=== PATIENT | female | born 1985 | race African-American/Black ===

== ENCOUNTER 2017-03-14 23:59 | Emergency (ER) | payer OTHER ==
[2017-03-15] MEDS ORDERED: Sodium Chloride 0.9% 1,000 ML IV ONE ×2 (00:24→01:49)
[2017-03-15] MEDS ORDERED: Ondansetron 4 MG/2 ML SDV IVPUSH ONE (00:24)
--- NOTE | 2017-03-15 00:59 | EDM.PDOC ---
ED HPI GENERAL MEDICAL PROBLEM - General Chief Complaint: [employer] Problem Stated Complaint: VOMITING Time Seen by Provider: 03/15/17 00:25 Source of Information: Reports: Patient History Limitations: Reports: No Limitations - History of Present Illness INITIAL COMMENTS - FREE TEXT/NARRATIVE: The patient is a at approximately 5 weeks by date who comes in for nausea and vomiting. She states that she took a home test a few days ago that was positive. She was trying to get . She's had lots of nausea and vomiting all week. It was worse tonight. States she is not really keeping any liquids down at this point. She has some abdominal pain associated with vomiting but otherwise no his comfort. No cramping. No bleeding. No unusual vaginal discharge. No dysuria. No fever. Last episode of vomiting was right before coming to the emergency department. No diarrhea. - Related Data Allergies Allergy/AdvReac Type Severity Reaction Status Date / Time No Known Allergies Allergy Verified 03/15/17 00:22 Home Meds: Home Meds Cephalexin 250 mg PO QID #20 capsule 03/15/17 [Rx] Citalopram Hydrobromide [Celexa] 40 mg PO DAILY 03/15/17 [History] Doxylamine/Pyridoxine HCl [Dicvictor hugogis Dr 10-10 mg Tablet] 2 each PO DAILY #30 tablet. 03/15/17 [Rx] Ondansetron [Zofran ODT] 4 mg PO Q4H PRN #30 tab.dis 03/15/17 [Rx] Past Medical History Psychiatric History: Reports: Anxiety, PTSD - Past Surgical History HEENT Surgical History: Reports: Oral Surgery Musculoskeletal Surgical History: Reports: Other (See Below) Other Musculoskeletal Surgeries/Procedures:: ankle surgery, hand surgery Social & Family History - Tobacco Use Smoking Status *Q: Never Smoker - Caffeine Use Caffeine Use: Reports: None - Recreational Drug Use Recreational Drug Use: No ED ROS GENERAL - Review of Systems Review Of Systems: See Below Constitutional: Denies: Fever Respiratory: Reports: No Symptoms Cardiovascular: Reports: No Symptoms GI/Abdominal: Reports: Nausea, Vomiting. Denies: Abdominal Pain : Denies: Discharge, Urgency Musculoskeletal: Reports: No Symptoms Skin: Reports: No Symptoms Neurological: Reports: No Symptoms ED EXAM - Physical Exam Exam: See Below Exam Limited By: No Limitations General Appearance: Alert, WD/WN, No Apparent Distress Eye Exam: Bilateral Eye: Normal Inspection Ears: Normal External Exam Nose: Normal Inspection, Normal Mucosa, No Blood Throat/Mouth: Normal Inspection, Normal Voice, No Airway Compromise Head: Atraumatic, Normocephalic Neck: Normal Inspection, Supple, Non-Tender, Full Range of Motion Respiratory/Chest: No Respiratory Distress, Lungs Clear, Normal Breath Sounds Cardiovascular: Normal Peripheral Pulses, Regular Rate, Rhythm GI/Abdominal Exam: Soft, Non-Tender, No Distention. No: Rebound Back Exam: No: CVA Tenderness (L), CVA Tenderness (R) Extremities: Normal Inspection Neurological: Alert, Oriented, Normal Cognition, No Motor/Sensory Deficits Psychiatric: Normal Affect, Normal Mood Skin Exam: Warm, Dry, Intact, Normal Color, No Rash Course - Vital Signs Last Recorded V/S: Last Vital Signs Temp 37.3 C 03/15/17 00:18 Pulse 80 03/15/17 02:54 Resp 16 03/15/17 02:54 BP 120/79 03/15/17 02:54 Pulse Ox 99 03/15/17 02:54 - Orders/Labs/Meds Labs: Laboratory Tests 03/15/17 03/15/17 03/15/17 Range/Units 00:30 00:30 01:40 WBC 9.55 (3.98-10.04) K/mm3 RBC 4.46 (3.98-5.22) M/mm3 Hgb 13.7 (11.2-15.7) gm/L Hct 39.9 (34.1-44.9) % MCV 89.5 (79.4-94.8) fl MCH 30.7 (25.6-32.2) pg MCHC 34.3 (32.2-35.5) g/dl RDW Std Deviation 42.9 (36.4-46.3) fL Plt Count 223 (182-369) K/mm3 MPV 10.7 (9.4-12.3) fl Neut % (Auto) 68.6 (34.0-71.1) % Lymph % (Auto) 25.0 (19.3-51.7) % [place] % (Auto) 5.5 (4.7-12.5) % Eos % (Auto) 0.6 L (0.7-5.8) Baso % (Auto) 0.2 (0.1-1.2) % Neut # (Auto) 6.54 H (1.56-6.13) K/mm3 Lymph # (Auto) 2.39 (1.18-3.74) K/mm3 [place] # (Auto) 0.53 H (0.24-0.36) K/mm3 Eos # (Auto) 0.06 (0.04-0.36) K/mm3 Baso # (Auto) 0.02 (0.01-0.08) K/mm3 Sodium 138 (136-145) mEq/L Potassium 3.4 L (3.5-5.1) mEq/L Chloride 103 (98-107) mEq/L Carbon Dioxide 22 (21-32) mEq/L Anion Gap 16.4 H (5-15) BUN 15 (7-18) mg/dL Creatinine 0.9 (0.55-1.02) mg/dL Est Cr Clr Drug Dosing 99.74 mL/min Estimated GFR (MDRD) > 60 (>60) mL/min BUN/Creatinine Ratio 16.7 (14-18) Glucose 94 (74-106) mg/dL Calcium 9.1 (8.5-10.1) mg/dL Total Bilirubin 0.7 (0.2-1.0) mg/dL AST 16 (15-37) U/L ALT 23 (14-59) U/L Alkaline Phosphatase 31 L (46-116) U/L Total Protein 8.3 H (6.4-8.2) g/dl Albumin 4.4 (3.4-5.0) g/dl Globulin 3.9 gm/dL Albumin/Globulin Ratio 1.1 (1-2) HCG, Quant 78781.0 mIU/mL Urine Color Yellow (Yellow) Urine Appearance Clear (Clear) Urine pH 6.0 (5.0-8.0) Ur Specific [place] > or = 1.030 (1.005-1.030) Urine Protein 1+ H (Negative) Urine Glucose (UA) Negative (Negative) Urine Ketones 2+ H (Negative) Urine Occult Blood Negative (Negative) Urine Nitrite Negative (Negative) Urine Bilirubin 1+ H (Negative) Urine Urobilinogen 1.0 (0.2-1.0) Ur Leukocyte Esterase Trace H (Negative) Urine RBC 0-5 (0-5) /hpf Urine WBC 5-10 H (0-5) /hpf Ur Epithelial Cells 10-20 H (0-5) /hpf Urine Bacteria Moderate H (FEW) /hpf Urine Mucus Many H (FEW) /hpf Meds: Medications Discontinued Medications Generic Name Dose Route Start Last Admin Trade Name Bravo PRN Reason Stop Dose Admin Cephalexin 250 mg 03/15/17 02:16 03/15/17 02:37 Keflex PO 03/15/17 02:17 250 mg ONETIME ONE Administration Sodium Chloride 1,000 mls @ 1,000 mls/hr 03/15/17 00:24 03/15/17 00:35 Normal Saline IV 03/15/17 01:23 1,000 mls/hr ONETIME ONE Administration Sodium Chloride Confirm 03/15/17 01:50 03/15/17 01:50 Normal Saline Administered 03/15/17 01:51 Not Given Dose 1,000 mls @ as directed .ROUTE .STK-MED ONE Sodium Chloride 1,000 mls @ 999 mls/hr 03/15/17 01:49 03/15/17 01:50 Normal Saline IV 03/15/17 02:49 999 mls/hr STAT ONE Administration Ondansetron HCl 4 mg 03/15/17 00:24 03/15/17 00:36 Zofran IVPUSH 03/15/17 00:25 4 mg ONETIME ONE Administration Potassium Chloride 40 meq 03/15/17 02:16 03/15/17 02:35 Potassium Chloride Solution PO 03/15/17 02:17 Not Given ONETIME ONE Potassium Chloride 40 meq 03/15/17 02:33 03/15/17 02:37 Klor-Con M20 PO 03/15/17 02:34 40 meq ONETIME STA Administration - Re-Assessments/Exams Free Text/Narrative Re-Assessment/Exam: 03/15/17 03:21 Feels much better after 2L NS and zofran. Tolerating PO. Has OB f/u scheduled for this week. Discussed return precautions. Departure - Departure Time of Disposition: 02:32 Disposition: Home, Self-Care 01 Clinical Impression: Hyperemesis Qualifiers: Vomiting type: unspecified Nausea presence: with nausea Qualified Code(s): R11.2 - Nausea with vomiting, unspecified Urinary tract infection Qualifiers: Urinary tract infection type: acute cystitis Hematuria presence: without hematuria Qualified Code(s): N30.00 - Acute cystitis without hematuria - Discharge Information Prescriptions: Cephalexin 250 mg PO QID #20 capsule Doxylamine/Pyridoxine HCl [Diclegis Dr 10-10 mg Tablet] 2 each PO DAILY #30 tablet. Ondansetron [Zofran ODT] 4 mg PO Q4H PRN #30 tab.dis PRN Reason: Nausea Instructions: Hyperemesis Gravidarum, Urinary Tract Infection, Adult, Easy-to- Read Referrals: PCP,Unknown [Primary Care Provider] - Forms: ED Department Discharge Additional Instructions: 1. Follow up with the OB doctor of your choice as soon as possible. Call [phone] if you'd like to schedule with a provider here. 2. Take diclegis as prescribed for nausea. Take at night on an empty stomach. Take zofran as prescribed for nausea as needed. 3. Drink plenty of clear fluids. 4. Return to the ED if you have vomiting without keeping any liquids down, abdominal pain, fainting, or any other concerning symptoms.
[2017-03-15] MEDS ORDERED: Sodium Chloride 0.9% 1,000 ML ONE (01:50)
[2017-03-15] MEDS ORDERED: Cephalexin 250 MG Cap PO ONE (02:16)
[2017-03-15] MEDS ORDERED: Potassium Chloride 10% 20 MEQ/15 ML Soln 15 ML UD Cup PO ONE (02:16)
[2017-03-15] MEDS ORDERED: Potassium Chloride 20 MEQ Tab.ER PO STA (02:33)
[2017-03-15 02:55] VITALS: BP 120/79
== END 2017-03-15 02:50 | disposition home or self-care (01) ==
LOC: JD.ED 23:59
DX: O23.11 Infections of bladder in pregnancy, first trimester (principal); O21.9 Vomiting of pregnancy, unspecified; Z79.899 Other long term (current) drug therapy; Z3A.01 Less than 8 weeks gestation of pregnancy
CPT/HCPCS: 36415; 80053; 81001; 84702; 85025; 96361; 96374; 99284; A9270; J2405; J7040